=== PATIENT | male | born 1975 | race Caucasian/White ===

== ENCOUNTER 2016-09-17 16:38 | Emergency (ER) | payer OTHER ==
[~2016-09-17 16:38] MED LIST: ANUSOL-HC25 MG/SUPP PR; DOCUSATE SODIU100 MG PO; HYDROCODON-ACE1 EAC5 PO; IBUPROFEN PO; NO MEDICATIONS; NUPERCAINAL 1%30 G1 TOP; PENICILLIN PO; TYLOX 5/500 CAP1 CAP PO; ULTRAM PO
== END 2016-09-17 17:19 | disposition home or self-care (01) ==
LOC: SED 16:38
DX: R51 Headache (principal); R11.0 Nausea; F17.200 Nicotine dependence, unspecified, uncomplicated
CPT/HCPCS: 99284; J1885; J2405

== ENCOUNTER 2016-09-17 17:43 | Emergency (ER) | payer OTHER ==
--- NOTE | ~2016-09-17 | MR133 ---
[facility] A Service of [facility] & [facility] RADIOLOGY TEXT RESULTS PATIENT: NEHEMIAS THURMAN LOCATION: [facility] : 75 UNIT #: [id number] AGE: [address]: Sixto Wiggins DO SEX: M ORDER DR: [id number] [facility] [address] [place], [place] [address] [id number] E MR#: [id number] Acc #: [id number] NAME: NEHEMIAS THURMAN : 1975 SEX: M STUDY DATE/TIME: 09/17/2016 23:22 UNIT: [facility] ROOM: STUDY DESCRIPTION: MR MRA Neck WWo Contrast Attending Physician: Sixto Wiggins D.O. Ordering Physician: Sixto Wiggins D.O. Primary Care Physician: No Primary Care Physician MRI CENTER REPORT This report is preliminary unless electronic signature is present. EXAM Cervical carotid MR angiogram. HISTORY Dizziness, nausea, and vomiting beginning at noon earlier the same day. Accompanied by numbness in hands and migraine headache. Balance disturbance. TECHNIQUE MR angiographic imaging was performed from the aortic arch to the skull base with and without contrast. 17 mL of MultiHance was used. MR angiography was performed with 2-D gzuk-by-mimhfj and 3-D MRA techniques. FINDINGS The great vessels are widely patent off of the aortic arch. Both carotid bifurcations are widely patent with no stenosis by NASCET criteria. The cervical internal carotids are widely patent up to the skull base. In the posterior circulation, the left vertebral artery is more dominant than the right. Both vertebral arteries are widely patent with antegrade flow. IMPRESSION Normal examination. STAT * RESULT Dictated by... Yoseph Castellon M.D. THIS IS AN ELECTRONICALLY VERIFIED REPORT Yoseph Castellon M.D. at 09/18/2016 4:32 PM RLF/karon TD: 09/18/2016 08:26 [facility] A Service of [facility] & [facility] RADIOLOGY TEXT RESULTS PATIENT: NEHEMIAS THURMAN LOCATION: [facility] #: [id number] : 75 UNIT #: [id number] AGE: [address]: Sixto Wiggins DO SEX: M ORDER DR: JOB #: [id number] MRI CENTER REPORT Page 1 of 1 COPY
--- NOTE | ~2016-09-17 | EKG ---
PATIENT: NEHEMIAS THURMAN UNIT #: [id number] Ventricular Rate: 48 BPM Atrial Rate: 48 BPM P-R Interval: 162 ms QRS Duration: 88 ms Q-T Interval: 456 ms QTC Calculation(Bezet): 407 ms P [place]: 5 degrees Calculated R [place]: 60 degrees Calculated T [place]: 60 degrees Diagnosis Line: Sinus bradycardia with sinus arrhythmia Diagnosis Line: Otherwise normal ECG Diagnosis Line: No previous ECGs available Diagnosis Line: Confirmed by BLAKE CHAVEZ MD ([id number]) on Diagnosis Line: 09/18/2016 7:09:16 PM INTERPRETING MD: KATHY PETERS
--- NOTE | ~2016-09-17 | MR18 ---
[facility] A Service of [facility] RADIOLOGY TEXT RESULTS PATIENT: NEHEMIAS THURMAN LOCATION: [facility] : 75 UNIT #: [id number] AGE: [address]: Sixto Wiggins DO SEX: M ORDER DR: [id number] [facility] [address] [place], [place] [address] [id number] E MR#: [id number] Acc #: [id number] NAME: NEHEMIAS THURMAN : 1975 SEX: M STUDY DATE/TIME: 09/17/2016 23:22 UNIT: [facility] ROOM: STUDY DESCRIPTION: MR Brain Wo Contrast Attending Physician: Sixto Wiggins D.O. Ordering Physician: Sixto Wiggins D.O. Primary Care Physician: Primary Care Physician No MRI CENTER REPORT This report is preliminary unless electronic signature is present. EXAM MRI brain without contrast INDICATION Nausea, dizziness, ataxia, migraine headache today. PROCEDURE Multiplanar, multisequence MR imaging of the brain without the administration of contrast. Comparison PET/CT from 12/07/2007. FINDINGS Overall normal brain volume. There is no acute hemorrhage, abnormal mass effect, extraaxial collection or hydrocephalus. No abnormal restricted diffusion. Flow voids of major intracranial vessels intact. There is mucosal thickening in the paranasal sinuses, ethmoid air cells, left maxillary sinus and to a lesser degree sphenoid sinuses. IMPRESSION 1. No acute findings. 2. Paranasal sinus mucosal thickening. Dictated by... Elvis Damian M.D. THIS IS AN ELECTRONICALLY VERIFIED REPORT Elvis Damian M.D. at 09/22/2016 7:23 AM HEATH/lilia TD: 09/18/2016 09:57 JOB #: [id number] MRI CENTER REPORT [facility] A Service of [facility] RADIOLOGY TEXT RESULTS PATIENT: NEHEMIAS THURMAN LOCATION: [facility] : 75 UNIT #: [id number] AGE: [address]: Sixto Wiggins DO SEX: M ORDER DR: Page 1 of 1 COPY
--- NOTE | ~2016-09-17 | MR122 ---
[facility] A Service of [facility] RADIOLOGY TEXT RESULTS PATIENT: NEHEMIAS THURMAN LOCATION: [facility] : 75 UNIT #: [id number] AGE: [address]: Sixto Wiggins DO SEX: M ORDER DR: [id number] [facility] [address] [place], [place] [address] [id number] E MR#: [id number] Acc #: [id number] NAME: NEHEMIAS THURMAN : 1975 SEX: M STUDY DATE/TIME: 09/17/2016 23:22 UNIT: [facility] ROOM: STUDY DESCRIPTION: MR MRA Head Wo Contrast Attending Physician: Sixto Wiggins D.O. Ordering Physician: Sixto Wiggins D.O. Primary Care Physician: Primary Care Physician No MRI CENTER REPORT This report is preliminary unless electronic signature is present. EXAM Intracranial MR angiogram HISTORY Dizziness with nausea and vomiting beginning earlier in the day prior to arrival. Additional history of numbness in the hands and headache. Patient unable to walk. TECHNIQUE MR angiographic imaging was performed from the skull base to the [place]. FINDINGS In the anterior circulation in the carotid siphons, M1 and A1 segments are widely patent. No major branch vessel occlusive disease or severe stenosis is noted. In the posterior circulation there is severe stenosis versus a developmentally small right P1 segment. 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 The left vertebral is the dominant vertebral artery. No aneurysms are seen. No vascular malformations are noted. IMPRESSION 1. origin of the right posterior cerebral artery. The P1 segment is correspondingly small. I cannot rule out atherosclerotic stenosis at this location but this is probably a developmental normal variant. 2. Dominant left vertebral with a very small distal right vertebral. 3. No evidence of intracranial occlusive disease or aneurysm. STAT * RESULT [facility] A Service of [facility] RADIOLOGY TEXT RESULTS PATIENT: NEHEMIAS THURMAN [facility] #: [id number] : 75 UNIT #: [id number] AGE: [address]: Sixto Wiggins DO SEX: M ORDER DR: Dictated by... Yoseph Castellon M.D. THIS IS AN ELECTRONICALLY VERIFIED REPORT Yoseph Castellon M.D. at 09/18/2016 4:32 PM Vinny TD: 09/18/2016 07:56 JOB #: [id number] MRI CENTER REPORT Page 1 of 1 COPY
[2016-09-17 18:32] LABS: URINE SOURCE CLEAN CATCH
[2016-09-17 18:36] LABS: BASOPHIL% 0.5 % (0-2.5); EOSINOPHIL% 0.7 % (0.0-7.0); HEMATOCRIT 44.8 % (38.0-50.0); LYMPHOCYTE# 1.5 X10e3 (1.0-3.5); MEAN CELL VOLUME 94.4 FL (83-96); MEAN CORPUSCULAR HEMOGLOBIN 31.6 PG (28-34); MEAN CORPUSCULAR HGB CONC 33.4 g/dL (30-36); MEAN PLATELET VOLUME 8.3 FL (6.5-11.5); MONOCYTE# 0.5 X10e3 (0-1.0); MONOCYTE% 7.3 % (3.0-12.0); NEUTROPHIL# 4.3 X10e3 (1.5-7.1); NEUTROPHIL% 67.5 % (40-75); PLATELET COUNT 197 X10e3 (140-420); RED BLOOD COUNT 4.74 X10e (3.90-5.60); RED CELL DISTRIBUTION WIDTH 13.7 % (11.0-15.5); WHITE BLOOD COUNT 6.4 X10e3 (4.0-10.5)
[2016-09-17 18:40] LABS: URINE APPEARANCE CLEAR; URINE BLOOD NEG (NEG); URINE COLOR DK YELLOW; URINE GLUCOSE NEG (NEG); URINE KETONE TRACE (NEG); URINE LEUKOCYTE ESTERASE TRACE (NEG); URINE NITRATE NEG (NEG); URINE PH 5.5 (5-8); URINE PROTEIN NEG (NEG); URINE SPECIFIC GRAVITY 1.033 (1.003-1.035)
[2016-09-17 18:44] LABS: URINE BACTERIA AUWI NEG (NEGATIVE); URINE SQUAMOUS EPITHELIAL CELL NONE SEEN /[HPF]; UWBCS1 AUWI 0-2 (0-5)
[2016-09-17 18:45] LABS: DIFF IND NO
[2016-09-17 18:51] LABS: CULTURE INDICATED? NO
[2016-09-17 18:53] LABS: ALBUMIN SERUM 4.5 g/dL (3.5-5.0); BILIRUBIN, DIRECT 0.1 mg/dL (0.0-0.2); BILIRUBIN,INDIRECT 0.6 mg/dL (0.0-0.9); BILIRUBIN,TOTAL 0.7 mg/dL (0.2-2.0); CALCIUM SERUM 9.1 mg/dL (8.4-10.2); CREATININE SERUM 0.8 mg/dL (0.6-1.4); GLOM FILT RATE Estimated 111.8 mL/min (>60); PROTEIN TOTAL SERUM 7.6 g/dL (6.0-8.3)
[2016-09-17 19:04] LABS: POC - TROPONIN <0.05 ng/mL (<=0.05)
[2016-09-18 00:35] LABS: AMPHETAMINE NEG (NEG); BARBITURATES NEG (NEG); BENZODIAZEPINES NEG (NEG); COCAINE NEG (NEG); MARIJUANA POS (NEG); OPIATES NEG (NEG); TRICYCLIC ANTIDEPRESSANTS NEG (NEG); U METHADONE NEG (NEG)
== END 2016-09-18 02:30 | disposition home or self-care (01) ==
LOC: CED 17:43
PROVIDERS: Emergency Medicine
DX: R42 Dizziness and giddiness (principal); M54.2 Cervicalgia; F17.200 Nicotine dependence, unspecified, uncomplicated
CPT/HCPCS: 70544; 70549; 70551; 80048; 80076; 80307; 81003; 82550; 82553; 84484; 85025; 93005; 96361; 96374; 96375; 99284; A9577; J1100; J1200; J2060; J2765